=== PATIENT | male | born 1950 | race Caucasian/White ===

== ENCOUNTER 2018-02-17 15:10 | Emergency (ER) | payer OTHER ==
[~2018-02-17] VITALS: Ht 177.8 cm; Wt 117.0 kg
[2018-02-17] MEDS ORDERED: GINKGO BILOBA30 MG (15:27)
[2018-02-17] MEDS ORDERED: COZAAR 50 MG TA50 M2 PO (15:27)
[2018-02-17] MEDS ORDERED: CENTRUM SILVER1 EAC2 PO (15:27)
[2018-02-17] MEDS ORDERED: PREDNISONE 10 M10 M1 PO (15:34)
[2018-02-17] MEDS ORDERED: LUBRICANT EYE3.5 G2 OPHTHALMIC (15:38)
[2018-02-17] MEDS ORDERED: LUBRICANT 0.5-015 ML OPHTHALMIC (15:38)
[2018-02-17 16:06] VITALS: BP 136/52
== END 2018-02-17 16:08 | disposition home or self-care (01) ==
LOC: ER 15:10
DX: G51.0 Bell's palsy (principal); I10 Essential (primary) hypertension